=== PATIENT | female | born 1970 | race Two or more races ===

== ENCOUNTER 2019-06-14 20:24 | Inpatient (IN) | payer OTHER ==
[~2019-06-14] VITALS: Ht 170.2 cm; Wt 85.7 kg
--- NOTE | 2019-06-14 20:00 | NUR ---
PATIENT NEWLY ADMITTED FROM [facility]. PATIENT IS S/P LUMBAR FUSION DONE ON 06/10/2019. PATIENT CAME VIA GURNEY WITH 2 IT COMPLIANCE MANAGER [facility] ORIENTED TO ROOM, BED, AND UNIT. PATIENT MADE COMFORTABLE AND WARM. PATIENT ABLE TO MAKE NEEDS KNOWN. ON ROOM AIR, RESPIRATIONS EVEN AND UNLABORED. ALL NEEDS ATTENDED. FALL AND SAFETY PRECAUTIONS OBSERVED.
[2019-06-14] MEDS ORDERED: Z GUARD REMEDY PASTE 57 GM TUBE TOP PRN (20:45)
[2019-06-14 21:41] VITALS: BP 114/70
[2019-06-14] MEDS ORDERED: HYDROCODONE/APAP 10-325 MG TABLET PO PRN (22:00)
[2019-06-14] MEDS: HYDROCODONE/APAP 5-325MG TABLET PO PRN (22:06)
--- NOTE | 2019-06-15 05:14 | NUR ---
PATIENT IS IN BED, ASLEEP BUT EASILY AROUSABLE. PATIENT SLEPT WELL THROUGH THE NIGHT. IN NO RESPIRATORY OR ACUTE DISTRESS. FALL AND SAFETY PRECAUTIONS OBSERVED. ALL NEEDS ATTENDED AND ANTICIPATED.
[2019-06-15] MEDS: HYDROCODONE/APAP 5-325MG TABLET PO PRN ×3 (06:24→20:24)
[2019-06-15 06:26] VITALS: BP 113/75
[2019-06-15 08:00] VITALS: BP 118/69
[2019-06-15] MEDS ORDERED: ACETAMINOPHEN 325 MG TABLET PO PRN (13:15)
[2019-06-15 16:00] VITALS: BP 122/74
[2019-06-15] MEDS: DORZOLAMIDE/TIMOLOL OPHT DROP 10 ML BOTTLE EACHEYE SCH (18:06)
[2019-06-15] MEDS: DOCUSATE SODIUM 100 MG CAPSULE PO SCH (18:06)
--- NOTE | 2019-06-15 19:27 | NUR ---
RECEIVED PATIENT IN BED, WATCHING TELEVISION. ALERT AND VERBALLY RESPONSIVE. AFEBRILE. NO COMPLAINTS OF PAIN AT THIS TIME. WILL CONTINUE TO ATTEND TO PATIENT'S NEEDS. WILL KEEP PATIENT WARM AND COMFORTABLE.
[2019-06-15 20:07] VITALS: BP 119/70
[2019-06-15] MEDS: LATANOPROST OPHT DROP 2.5 ML BOTTLE EACHEYE SCH (20:24)
[2019-06-15] MEDS: FAMOTIDINE 20 MG TABLET PO SCH (20:24)
[2019-06-15] MEDS: BISACODYL 10 MG SUPP.RECT RC PRN (20:24)
--- NOTE | 2019-06-16 04:55 | NUR ---
PATIENT IS IN BED, ASLEEP BUT EASILY AROUSABLE. PATIENT SLEPT WELL THROUGH THE NIGHT. NO COMPLAINT OF PAIN AT THIS TIME. PATIENT RECEIVED NORCO 5/325MG BEFORE SLEEPING FOR 7/10 PAIN. PATIENT REQUESTED FOR DULCOLAX SUPPOSITORY, PER PATIENT "SHE HASNT HAD A BOWEL MOVEMENT FOR ABOUT 2 DAYS NOW." ADMINISTERED DULCOLAX SUPPOSITORY PER MD ORDER. TOLERATED PROCEDURE WELL. WILL CONTINUE TO MONITOR PATIENTFALL AND SAFETY PRECAUTIONS OBSERVED. ALL NEEDS ATTENDED AND ANTICIPATED.
[2019-06-16 06:48] VITALS: BP 118/79
--- NOTE | 2019-06-16 07:10 | NUR ---
Received patient in bed asleep but arousable. On room air with no SOB. Abdominal and back dressing clean and intact. Complained of 5/10 pain and pain med will be given. Call light within reach. Bed locked and at lowest position with siderails 2x up. Will continue to monitor.
[2019-06-16 07:44] VITALS: BP 135/83
[2019-06-16 08:04] LABS: BASOPHILS % (AUTO) 0.5 % (0.0-2.0); EOSINOPHILS # (AUTO) 0.1 K/uL (0.0-0.7); EOSINOPHILS % (AUTO) 1.3 % (0.0-7.0); HEMOGLOBIN 10.3 g/dL (10.9-14.3); LYMPHOCYTES % (AUTO) 29.2 % (20.5-51.5); MEAN CORPUSCULAR HEMOGLOBIN 31.5 uug (24.7-32.8); MEAN CORPUSCULAR HGB CONC 34 g/dL (32.3-35.6); MONOCYTES # (AUTO) 0.6 K/uL (2.0-10.0); MONOCYTES % (AUTO) 8.2 % (0.0-11.0); NEUTROPHILS # (AUTO) 4.1 K/uL (1.8-8.9); NEUTROPHILS % (AUTO) 60.8 % (38.5-71.5); PLATELET COUNT (AUTO) 307 K/uL (179-408); RED BLOOD CELL COUNT(AUTO) 3.26 MIL/uL (3.63-4.92); WHITE BLOOD COUNT (AUTO) 6.7 K/uL (3.8-11.8)
[2019-06-16 08:10] LABS: BILIRUBIN,TOTAL 0.7 mg/dL (0.2-1.0); CREATININE 0.8 mg/dL (0.6-1.3); MAGNESIUM 1.5 mg/dL (1.8-2.4); PHOSPHOROUS 4.2 mg/dL (2.5-4.9); POTASSIUM 4.1 mmol/L (3.5-5.1); TOTAL PROTEIN, SERUM 7.2 g/dL (6.4-8.2)
[2019-06-16] MEDS: FAMOTIDINE 20 MG TABLET PO SCH ×2 (08:51→21:06)
[2019-06-16] MEDS: DOCUSATE SODIUM 100 MG CAPSULE PO SCH ×2 (08:51→16:49)
[2019-06-16] MEDS: SENNOSIDES 1 TABLET PO SCH (08:51)
[2019-06-16] MEDS: DORZOLAMIDE/TIMOLOL OPHT DROP 10 ML BOTTLE EACHEYE SCH ×2 (08:53→16:49)
[2019-06-16] MEDS: HYDROCODONE/APAP 5-325MG TABLET PO PRN ×3 (08:54→21:10)
[2019-06-16] MEDS ORDERED: MAGNESIUM OXIDE 400 MG TABLET PO ONE (11:15)
[2019-06-16 14:54] VITALS: BP 118/67
--- NOTE | 2019-06-16 19:01 | NUR ---
Patient in bed asleep but arousable by name. complained that she was feeling hot, temp taken 98.6 degrees. No distress noted. Will continue to monitor for safety.
[2019-06-16 20:24] VITALS: BP 114/62
[2019-06-16] MEDS: LATANOPROST OPHT DROP 2.5 ML BOTTLE EACHEYE SCH (21:06)
[2019-06-16] MEDS: BISACODYL 10 MG SUPP.RECT RC PRN (21:06)
[2019-06-17 05:57] VITALS: BP 105/59
[2019-06-17] MEDS: METHOCARBAMOL 500 MG TABLET PO PRN ×3 (06:04→22:55)
[2019-06-17] MEDS: HYDROCODONE/APAP 5-325MG TABLET PO PRN ×3 (06:14→22:56)
[2019-06-17 08:30] VITALS: BP 117/67
--- NOTE | 2019-06-17 08:30 | NUR ---
Patient is AAO X 4, able to express all needs. No SOB or any acute distress noted. Vital signs stable for patient. Patient stating having pain with movement but does not need any pain pill. Original surgical dressing on lower abdomen and back intact and dry, no soilage noted. No s/sx of infection noted around surgical site. Patient with brace on when standing and walking; Patient ambulatory with a walker and stand by assist for care. Safety measures in place, call light left at bed side and will continue with care.
[2019-06-17] MEDS: DOCUSATE SODIUM 100 MG CAPSULE PO SCH ×2 (08:49→17:49)
[2019-06-17] MEDS: DORZOLAMIDE/TIMOLOL OPHT DROP 10 ML BOTTLE EACHEYE SCH ×2 (08:49→17:00)
[2019-06-17] MEDS: SENNOSIDES 1 TABLET PO SCH (08:54)
[2019-06-17] MEDS: FAMOTIDINE 20 MG TABLET PO SCH ×2 (08:54→20:48)
--- NOTE | 2019-06-17 11:08 | NUR ---
INDIVIDUALIZED PLAN OF CARE
[2019-06-17 16:19] VITALS: BP 95/55
[2019-06-17 19:38] VITALS: BP 109/66
--- NOTE | 2019-06-17 20:10 | NUR ---
resting in bed upon rounds. aaox4 no acute distress noted. kept comfortable. VSS. Lower back dressing and abdominal dressing intact. No drainage noted. Needs attended. Will monitor patient. OOB with walker to the BR. Voiding freely. TLSO brace on while OOB. Denies any pain at this time.
[2019-06-17] MEDS: LATANOPROST OPHT DROP 2.5 ML BOTTLE EACHEYE SCH (20:47)
[2019-06-17 21:43] LABS: *BILIRUBIN,URIN NEGATIVE (NEGATIVE); *CLARITY,URINE CLEAR (CLEAR); *COLOR,URINE YELLOW (YELLOW); *KETONES,URINE NEGATIVE (NEGATIVE); *UROBILINOGEN,URINE 0.2 E.U./dl (NORMAL); LEUKOCYTE ESTERASE ,URINE NEGATIVE (NEGATIVE); NITRITE, URINE NEGATIVE (NEGATIVE); PH,URINE 7.5 (5.0-8.0); UGLUCOSE NEGATIVE (NEGATIVE)
[2019-06-17 21:49] LABS: *BLOOD, URINE TRACE (NEGATIVE)
[2019-06-17 21:50] LABS: SQUAMOUS EPITHELIAL CELL,UR FEW /HPF (NONE SEEN); WBC,URINE 0-3 /HPF (0-3)
[2019-06-18 06:21] VITALS: BP 113/62
--- NOTE | 2019-06-18 06:25 | NUR ---
End of the shift note: slept well most of the shift. no acute distress noted. VSS. Voiding without difficulty. OOB to the BR with TLSO brace. Compliant with care.
[2019-06-18] MEDS: METHOCARBAMOL 500 MG TABLET PO PRN ×3 (08:31→21:42)
[2019-06-18] MEDS: DOCUSATE SODIUM 100 MG CAPSULE PO SCH ×2 (08:32→16:44)
[2019-06-18] MEDS: SENNOSIDES 1 TABLET PO SCH (08:32)
[2019-06-18] MEDS: FAMOTIDINE 20 MG TABLET PO SCH ×2 (08:32→21:43)
[2019-06-18] MEDS: HYDROCODONE/APAP 5-325MG TABLET PO PRN ×4 (08:33→21:43)
[2019-06-18] MEDS: DORZOLAMIDE/TIMOLOL OPHT DROP 10 ML BOTTLE EACHEYE SCH ×2 (08:34→16:44)
[2019-06-18 09:00] VITALS: BP 111/69
--- NOTE | 2019-06-18 09:26 | NUR ---
Received pt. in bed, A/OX4 verbally responsive and able to make her needs known. In no acute distress or SOB, tolerating RA. Pt. c/o lower back pain 8/10 p.s. Original surgical dressing in abdomen and lower back remain C/D/I. Pt. ambulatory, steady gait, supervision. Continent to both B&B. All due AM medications given as ordered with no ASE. Kept pt. clean and dry. Safety measures in place. Call light and all frequently used items within reach. Will continue to monitor accordingly.
[2019-06-18 17:09] VITALS: BP 115/74
--- NOTE | 2019-06-18 18:17 | NUR ---
EOS: No significant change during this shift. Pt. received all due medications. Pain well managed with [place] 5-325 mg 1 tab and robaxin for muscle spasms. Pt. participated with PT/OT and tolerated well. No new skin condition, surgical dressings remain C/D/I. Pt. tolerating diet well. Kept pt. clean and dry throughout. Safety measures in place. Call light within reach. Will endorse to oncoming shift accordingly
[2019-06-18 21:29] VITALS: BP 97/57
[2019-06-18] MEDS: LATANOPROST OPHT DROP 2.5 ML BOTTLE EACHEYE SCH (21:43)
[2019-06-18] MEDS: BISACODYL 10 MG SUPP.RECT RC PRN (21:43)
--- NOTE | 2019-06-18 21:53 | NUR ---
RECEIVED PATIENT IN BED, AWAKE, ALERT AND VERBALLY RESPONSIVE. CAN MAKE NEEDS KNOWN. RECEIVED DUE MEDICATIONS AND PRN MEDICATION NORCO 5/325, ROBAXIN, AND DULCOLAX SUPP PER PATIENT REQUEST. PER PATIENT, SHE HAS 7/10 PAIN AT RIGHT LOWER BACK. ORIGINAL DRESSING FROM S/P LUMBAR FUSION ON ABDOMEN AND LOWER BACK STILL INTACT. ALL NEEDS ATTENDED. WILL CONTINUE TO OBSERVE FALL AND SAFETY PRECAUTIONS.
[2019-06-19 06:24] VITALS: BP 98/65
--- NOTE | 2019-06-19 06:25 | NUR ---
UPON CHECKING PATIENT'S VITAL SIGNS, PATIENT REPORTED 7/10 PAIN AT LOWER BACK. OFFERED PATIENT PAIN MEDICATION. PER PATIENT, SHE WOULD RATHER HAVE IT WITH BREAKFAST. WILL ENDORSE TO AM SHIFT. LEFT PATIENT WARM, DRY, AND COMFORTABLE. FALL AND SAFETY PRECAUTIONS OBSERVED. ALL NEEDS ATTENDED.
[2019-06-19 08:00] VITALS: BP 117/69
[2019-06-19] MEDS: SENNOSIDES 1 TABLET PO SCH (08:21)
[2019-06-19] MEDS: FAMOTIDINE 20 MG TABLET PO SCH ×2 (08:21→20:32)
[2019-06-19] MEDS: METHOCARBAMOL 500 MG TABLET PO PRN ×3 (08:21→20:40)
[2019-06-19] MEDS: DOCUSATE SODIUM 100 MG CAPSULE PO SCH ×2 (08:21→16:25)
[2019-06-19] MEDS: HYDROCODONE/APAP 5-325MG TABLET PO PRN ×3 (08:21→20:40)
[2019-06-19] MEDS: DORZOLAMIDE/TIMOLOL OPHT DROP 10 ML BOTTLE EACHEYE SCH ×2 (08:22→16:27)
--- NOTE | 2019-06-19 11:02 | NUR ---
Received patient awake in bed in stable condition. Continue therapy for increase strenght and increase endurance. Continue pain management. tolerated well. not in distress. Patient had shower this morning. no complaint voiced as of this time. will continue monitor
[2019-06-19 15:54] VITALS: BP 127/64
--- NOTE | 2019-06-19 19:35 | NUR ---
Awake in bed, watching TV at this time. Denies any pain/discomforts. Safety measures and fall precaution maintained. Continue care as planned.
[2019-06-19 19:55] VITALS: BP 109/66
--- NOTE | 2019-06-19 20:05 | NUR ---
Radiologist at bedside for Xray of the abdomen.
[2019-06-19] MEDS: LATANOPROST OPHT DROP 2.5 ML BOTTLE EACHEYE SCH (20:33)
[2019-06-20 05:07] VITALS: BP 114/60
--- NOTE | 2019-06-20 05:21 | NUR ---
Shift End Report: Vs stable. Slept well. No complaint presented all night. All needs attended and met. No significant event reported. Continue current rehab plan of care.
[2019-06-20 06:48] LABS: BASOPHILS % (AUTO) 0.8 % (0.0-2.0); EOSINOPHILS # (AUTO) 0.1 K/uL (0.0-0.7); EOSINOPHILS % (AUTO) 1.3 % (0.0-7.0); HEMATOCRIT 30.6 % (31.2-41.9); HEMOGLOBIN 10.5 g/dL (10.9-14.3); LYMPHOCYTES # (AUTO) 2.6 K/uL (20.0-40.0); LYMPHOCYTES % (AUTO) 40.9 % (20.5-51.5); MEAN CORPUSCULAR HEMOGLOBIN 31.8 uug (24.7-32.8); MEAN CORPUSCULAR HGB CONC 35 g/dL (32.3-35.6); MEAN CORPUSCULAR VOLUME 92.3 fL (75.5-95.3); MONOCYTES # (AUTO) 0.5 K/uL (2.0-10.0); MONOCYTES % (AUTO) 7.2 % (0.0-11.0); NEUTROPHILS # (AUTO) 3.2 K/uL (1.8-8.9); NEUTROPHILS % (AUTO) 49.8 % (38.5-71.5); RED BLOOD CELL COUNT(AUTO) 3.31 MIL/uL (3.63-4.92); WHITE BLOOD COUNT (AUTO) 6.3 K/uL (3.8-11.8)
[2019-06-20 06:52] LABS: BILIRUBIN,TOTAL 0.3 mg/dL (0.2-1.0); CREATININE 0.8 mg/dL (0.6-1.3); PHOSPHOROUS 4.1 mg/dL (2.5-4.9); POTASSIUM 4.1 mmol/L (3.5-5.1); TOTAL PROTEIN, SERUM 7.2 g/dL (6.4-8.2)
[2019-06-20 06:53] LABS: THYROID STIMULATING HORMONE 2.934 mIU/mL (0.358-3.740)
[2019-06-20 07:06] LABS: PLATELET COUNT (AUTO) 468 K/uL (179-408)
[2019-06-20 07:27] VITALS: BP 122/65
[2019-06-20] MEDS: SENNOSIDES 1 TABLET PO SCH (08:41)
[2019-06-20] MEDS: DOCUSATE SODIUM 100 MG CAPSULE PO SCH ×2 (08:42→17:42)
[2019-06-20] MEDS: METHOCARBAMOL 500 MG TABLET PO PRN ×2 (08:42→20:55)
[2019-06-20] MEDS: FAMOTIDINE 20 MG TABLET PO SCH ×2 (08:42→20:55)
[2019-06-20] MEDS: DORZOLAMIDE/TIMOLOL OPHT DROP 10 ML BOTTLE EACHEYE SCH (08:43)
[2019-06-20] MEDS: HYDROCODONE/APAP 5-325MG TABLET PO PRN ×3 (08:46→20:56)
--- NOTE | 2019-06-20 12:50 | NUR ---
INTERDISCIPLINARY TEAM CONFERENCE
[2019-06-20 14:00] VITALS: BP 123/70
--- NOTE | 2019-06-20 18:40 | NUR ---
Patient remains alert, oriented x 4, not in any form of distress, on room air. No significant change noted during the shift. She complained of lower back pain, given PRN pain medication with noted relief. Patient participated with PT/OT today and tolerated well. Assisted with her needs promptly. Call light and frequently used items placed within reach. Will endorse accordingly to date night caregiver nurse.
[2019-06-20 19:56] VITALS: BP_SYST 66
[2019-06-20] MEDS: LATANOPROST OPHT DROP 2.5 ML BOTTLE EACHEYE SCH (20:54)
[2019-06-20] MEDS ORDERED: ATORVASTATIN 20 MG TABLET PO SCH (21:00)
--- NOTE | 2019-06-20 22:00 | NUR ---
aaox4 watching TV upon rounds. No acute distress noted. Needs attended. OOB to the BR with walker with supervision. Voiding well. LSO brace when getting OOB. Tolerated po meds well. Medicated with [place] for low back pain. Moderate relief noted. VSS. Possible discharge in am.
[2019-06-21 05:15] VITALS: BP 105/57
--- NOTE | 2019-06-21 05:59 | NUR ---
End of shift note: Quiet night. Slept well most of the shift. No acute distress noted. VSS. Voided in BR. Needs attended. Kept comfortable. Possible discharge today. Will monitor patient.
[2019-06-21 08:34] VITALS: BP 98/59
[2019-06-21] MEDS: FAMOTIDINE 20 MG TABLET PO SCH (08:46)
[2019-06-21] MEDS: SENNOSIDES 1 TABLET PO SCH (08:46)
[2019-06-21] MEDS: DOCUSATE SODIUM 100 MG CAPSULE PO SCH (08:46)
[2019-06-21] MEDS: DORZOLAMIDE/TIMOLOL OPHT DROP 10 ML BOTTLE EACHEYE SCH (08:46)
[2019-06-21] MEDS: METHOCARBAMOL 500 MG TABLET PO PRN (10:29)
[2019-06-21] MEDS: HYDROCODONE/APAP 5-325MG TABLET PO PRN (10:29)
--- NOTE | 2019-06-21 17:10 | NUR ---
D/C TO HOME VIA PRIVATE TRANSPORT. D/C INSTRUCTIONS GIVEN VERBALIZE UNDERSTANDING. D/C PICS DONE ORDER ON FILE. CHEO... PRATEEK
== END 2019-06-21 17:13 | disposition home health service (06) | DRG 560 ==
PROVIDERS: ADMIT Physical Medicine & Rehabilitation Pain Medicine; ATTEND Physical Medicine & Rehabilitation Pain Medicine
DX: Z47.89 Encounter for other orthopedic aftercare (principal); E44.0 Moderate protein-calorie malnutrition; J98.11 Atelectasis; Z98.1 Arthrodesis status; M47.26 Other spondylosis with radiculopathy, lumbar region; M47.27 Other spondylosis with radiculopathy, lumbosacral region; D64.9 Anemia, unspecified; E66.9 Obesity, unspecified; Z68.29 Body mass index [BMI] 29.0-29.9, adult; D69.6 Thrombocytopenia, unspecified; E83.42 Hypomagnesemia; H40.9 Unspecified glaucoma; R06.00 Dyspnea, unspecified; Z80.3 Family history of malignant neoplasm of breast; F17.210 Nicotine dependence, cigarettes, uncomplicated; R73.9 Hyperglycemia, unspecified
CPT/HCPCS: 36415; 74018; 82652; 83735; 84100; 84443; 85025; 87086; A4663